=== PATIENT | female | born 1985 | race American Indian/Alaskan Native ===

== ENCOUNTER 2022-02-19 21:11 | Inpatient (IN) | payer MEDICAID ==
--- NOTE | 2022-02-20 07:50 | History and Physical Report ---
History of Present Illness Date of examination: 02/20/22 Chief complaint: Induction of labor secondary to growth restriction History of present illness: 36-year-old at 38-2/7 weeks gestation presents to labor and delivery for induction of labor secondary to growth restriction . No vaginal bleeding. No leaking of fluid. Good movement. The patient is followed by maternal- medicine. Estimated weight was below the 3rd percentile. They recommended induction of labor to decrease the risk of stillbirth. For this reason, the patient is admitted to labor and delivery. Past History [employer] History: herpes - Obstetrical History Expected Date of Delivery: 03/04/22 Actual Gestation: 38 Week(s) 2 Day(s) : 8 Para: 2 Hx # Term Pregnancies: 1 Number of Pregnancies: 1 Spontaneous Abortions: 5 Number of Living Children: 2 Medications and Allergies Allergies Allergy/AdvReac Type Severity Reaction Status Date / Time No Known Allergies Allergy Unverified 02/20/22 07:10 Review of Systems All systems: negative - Vital Signs Vital signs: Vital Signs Pulse Pulse Ox 98 H 99 02/19/22 22:29 02/19/22 22:29 Temp Pulse Resp BP Pulse Ox 88 104/59 98 02/20/22 07:44 02/20/22 07:44 02/20/22 07:14 - Physical Exam Breasts: Positive: normal Cardiovascular: Regular rate Lungs: Positive: Normal air movement Abdomen: Positive: normal appearance Genitourinary (Female): Positive: normal external genitalia, normal perenium Vulva: both: normal Vagina: Positive: normal moisture Uterus: Positive: enlarged Adnexa: both: normal Anus/Rectum: Positive: normal perianal skin Extremities: Positive: normal Deep Tendon Reflex Grade: Normal +2 - Obstetrical FHR: category 1 Uterine Contraction Monitor Mode: Palpation Cervical Dilatation: 2 Cervical Effacement Percentage: 70 station: -2 Uterine Contraction Pattern: Irregular Results All other labs normal. Assessment and Plan - Patient Problems (1) 38 weeks gestation of Current Visit: Yes Status: Acute Plan to address problem: care is up-to-date at [facility]. GBS status is unknown known at this time. Currently, there are no risk factors for intrapartum GBS prophylaxis per 2010 CDC MMWR guidelines. As such, no penicillin at this time. However, if this patient does develop risk factors for GBS, then prescribe IV penicillin at that time. (2) growth restriction Current Visit: Yes Status: Acute Plan to address problem: Etiology is unknown. The estimated weight is below the 3rd percentile per ultrasound done by maternal- medicine. They recommend induction of labor to decrease the risk of stillbirth. (3) Genital herpes affecting Current Visit: Yes Status: Acute Plan to address problem: The patient is on Valtrex for suppression. There are no active lesions. Continue Valtrex intrapartum. (4) LGSIL on Pap smear of cervix Current Visit: Yes Status: Acute (5) Encounter for induction of labor Current Visit: Yes Status: Acute Plan to address problem: Start Pitocin per protocol.
[2022-02-20] MEDS ORDERED: LACTATED RINGERS 1,000 ML IV SCH (08:00)
[2022-02-20] MEDS ORDERED: METHYLERGONOVINE MALEATE 0.2 MG/ML VIAL IM PRN (08:00)
[2022-02-20] MEDS ORDERED: OXYTOCIN DRIP 30 UNITS/500 ML BAG IV SCH ×2 (08:00→15:00)
[2022-02-20] MEDS ORDERED: ACETAMINOPHEN 325 MG TAB PO PRN (08:00)
[2022-02-20] MEDS ORDERED: miSOPROStol 25 MCG TAB PO SCH (08:00)
[2022-02-20] MEDS ORDERED: ePHEDrine SULFATE 50 MG/1 ML INJ IV PRN (08:30)
[2022-02-20] MEDS ORDERED: CARBOPROST TROMETHAMINE 250 MCG/1 ML INJ IM PRN (08:30)
[2022-02-20] MEDS ORDERED: fentaNYL 100 MCG/2 ML INJ IV PRN (08:30)
[2022-02-20] MEDS ORDERED: TERBUTALINE 1 MG/1 ML INJ SUB-Q PRN (08:30)
[2022-02-20] MEDS ORDERED: BUTORPHANOL 2 MG/1 ML INJ IV PRN (08:30)
[2022-02-20 08:34] LABS: Hematocrit 28.1 % (30.3-42.9); Hemoglobin 8.7 gm/dl (10.1-14.3); Mean Corpuscular HGB Conc 31 % (30-34); Mean Corpuscular Volume 75 fl (79-97); Platelet Count 374 K/mm3 (140-440); Red Blood Count 3.76 M/mm3 (3.65-5.03)
[2022-02-20] MEDS: valACYclovir 500 MG TAB PO SCH (10:00)
--- NOTE | 2022-02-20 11:44 | Ultrasound Report ---
US OB follow up, US OB velocimetry umbilcal art INDICATION: growth restriction. TECHNIQUE: Transabdominal ultrasound with color and spectral Doppler imaging COMPARISON: None available. FINDINGS: There is a single intrauterine . Biparietal Diameter = 8.7 cm Head Circumference = 31.6 cm Abdominal Circumference = 30.9 cm Femur Length = 6.7 cm Heart Rate: 139 beats per minute. Estimated Weight in grams (if calculated): 2521 Position: cephalic. Cervix: Not well seen. Placenta: posterior and free of the os. Amniotic Fluid Volume: normal Amniotic Fluid Index (LEONARDO) in cm (if calculated): 16. 3 segments of the umbilical cord were evaluated. The spectral wave forms are normal. S/D ratio measures: 2.34, 2.29, and 2.63 Resistive index measures: 0.57, 0.56 and 0.62. IMPRESSION: 1. Single, living intrauterine with estimated sonographic age of 35 weeks, 0 day(s). Clini mary age is 38 weeks and 2 days. 2. LEONARDO is normal. 3. Cord doppler waveforms appear normal. Signer Name: Raffi Rivera MD Signed: 02/20/2022 11:39 AM Workstation Name: [id number]
[2022-02-20] MEDS ORDERED: PENICILLIN G POTASSIUM 5 MIL.UNITS in SODIUM CHLORIDE 0.9% 50 ML IV ONE (18:33)
--- NOTE | 2022-02-20 18:33 | Event Note ---
Date: 02/20/22 pt evaluated and pelvic /-1 on pitocin at 4mu/min. AROM done with clear fluid. PCN ordered with no results for GBS. Expect
[2022-02-20] MEDS ORDERED: LIDOCAINE (2%) 20 MG/1 ML VIAL 20 ML MDV INFILTRATI ONE (20:05)
[2022-02-20] MEDS ORDERED: LIDOCAINE (1%) 10 MG/1 ML VIAL 20 ML MDV INFILTRATI ONE (20:18)
--- NOTE | 2022-02-20 22:21 | Procedure Note ---
OB Delivery Note - Delivery Date of Delivery: 02/20/22 Surgeon: REGINA SILVESTRE Estimated blood loss: 200cc - Vaginal Delivery presentation: vertex Delivery position: OA Delivery induction: oxytocin Delivery monitor: external FHT, external uterine Route of delivery: Delivery cord: other (lower right extremity cord) Delivery laceration: 2nd degree (perineal) Delivery repair: chromic Delivery comments: SAVD of viable female infant, uncomplicated and placenta delivered spontaneously and complete with 3vessel cord. Right lower leg noted to have umbilical cord wrapped around it without any damage done to leg. Pt sustained 2nd perineal laceration that was repaired with 2-0 chromic running locked suture and lidocaine 1% used for pain relief. Bimanual exam done and clots removed from lower uterine segment. Cervix visualized and no lacerations seen. Mom and baby stable. - A at 1 minute: 9 at 5 minutes: 9 Infant Gender: Female (wt 2645g; clear amniotic fluid)
[2022-02-21] MEDS ORDERED: oxyCODONE /ACETAMINOPHEN 5-325MG TAB PO PRN (00:22)
[2022-02-21] MEDS ORDERED: ACETAMINOPHEN 325 MG TAB PO PRN (00:22)
[2022-02-21] MEDS ORDERED: diphenhydrAMINE 25 MG CAP PO PRN (00:22)
[2022-02-21] MEDS ORDERED: ONDANSETRON 4 MG/2 ML INJ IV PRN (00:22)
[2022-02-21] MEDS ORDERED: PROMETHAZINE 25 MG RECT SUPP PR PRN (00:22)
[2022-02-21] MEDS ORDERED: PROMETHAZINE 25 MG TAB PO PRN (00:22)
[2022-02-21] MEDS ORDERED: MAGNESIUM HYDROXIDE (MOM) ORAL LIQD UDC PO PRN (00:22)
[2022-02-21] MEDS ORDERED: WITCH HAZEL/ GLYCERIN PAD TP PRN (00:22)
[2022-02-21] MEDS ORDERED: LANOLIN/ZINC/DIMETHICONE (LANSINOH) 7 GM TP PRN (00:22)
[2022-02-21] MEDS: IBUPROFEN 800 MG TAB PO SCH ×2 (06:13→18:22)
--- NOTE | 2022-02-21 09:43 | Progress Note ---
Assessment and Plan A: PP Day #1 Asymptomatic Anemia P: Follow Routine Orders FeSO4 325mg PO BID Subjective - Subjective Date of service: 02/21/22 Patient reports: appetite normal, voiding normally, pain well controlled, flatus, ambulating normally : doing well, bottle feeding (and ) Objective - Vital Signs Latest vital signs: Vital Signs Temp Pulse Resp BP Pulse Ox Pulse Ox 02/21/22 08:28 97.8 F 69 16 96/66 100 02/21/22 07:45 98 02/21/22 06:13 18 02/21/22 05:22 97.7 F 64 20 105/62 100 02/21/22 00:51 98 02/21/22 00:03 97.3 F L 79 18 102/55 99 02/20/22 22:44 88 100 02/20/22 22:39 84 98 02/20/22 22:38 97 H 100/57 02/20/22 22:34 77 99 02/20/22 22:29 81 99 02/20/22 22:24 86 99 02/20/22 22:23 81 95/54 02/20/22 22:19 80 99 02/20/22 22:14 92 H 99 02/20/22 22:09 80 98 02/20/22 22:08 75 98/53 02/20/22 22:04 84 99 02/20/22 21:59 86 99 02/20/22 21:54 75 99 02/20/22 21:53 73 100/57 02/20/22 21:49 79 100 02/20/22 21:44 73 99 02/20/22 21:39 89 99 02/20/22 21:38 75 105/57 02/20/22 21:34 77 99 02/20/22 21:29 84 100 02/20/22 21:24 73 100 02/20/22 21:23 70 111/64 02/20/22 21:19 83 100 02/20/22 21:14 84 100 02/20/22 21:09 81 100 02/20/22 21:08 82 108/64 02/20/22 21:04 88 100 02/20/22 20:59 71 100 02/20/22 20:54 69 100 02/20/22 20:53 71 111/65 02/20/22 20:49 74 99 02/20/22 20:44 79 99 02/20/22 20:40 77 108/57 02/20/22 20:39 77 99 02/20/22 20:34 77 99 02/20/22 20:29 84 100 02/20/22 20:24 71 122/69 100 02/20/22 20:19 76 100 02/20/22 20:14 72 100 02/20/22 20:09 85 129/60 100 02/20/22 20:04 78 100 02/20/22 19:59 84 100 02/20/22 19:54 85 100 02/20/22 19:49 72 97 02/20/22 19:44 90 100 02/20/22 19:39 82 100 02/20/22 19:34 86 100 02/20/22 19:29 91 H 100 02/20/22 19:24 86 100 02/20/22 19:19 83 100 02/20/22 19:06 98.3 F 18 100 99 02/20/22 18:28 78 130/76 02/20/22 18:09 93 H 99 02/20/22 18:04 92 H 99 02/20/22 17:59 85 100 02/20/22 17:54 86 100 02/20/22 17:49 90 99 02/20/22 17:44 89 100 02/20/22 17:39 97 H 99 02/20/22 17:34 82 100 02/20/22 17:29 81 99 02/20/22 17:24 93 H 99 02/20/22 17:19 84 99 02/20/22 17:14 80 99 02/20/22 17:09 83 99 02/20/22 17:04 90 99 02/20/22 17:02 99 F 16 02/20/22 16:59 96 H 98 02/20/22 16:54 88 98 02/20/22 16:49 83 99 02/20/22 16:44 83 99 02/20/22 16:39 79 100 02/20/22 16:34 84 99 02/20/22 16:29 82 99 02/20/22 16:24 88 99 02/20/22 16:19 84 100 02/20/22 16:14 78 100 02/20/22 16:09 91 H 100 02/20/22 16:04 86 100 02/20/22 15:59 85 100 02/20/22 15:54 81 100 02/20/22 15:49 82 100 02/20/22 15:44 93 H 100 02/20/22 15:39 82 100 02/20/22 15:34 81 100 02/20/22 15:29 81 100 02/20/22 15:24 85 100 02/20/22 15:19 83 100 02/20/22 15:14 91 H 100 02/20/22 15:09 95 H 100 02/20/22 15:04 89 100 02/20/22 14:59 95 H 115/60 100 02/20/22 14:46 99 H 99 02/20/22 14:41 97 H 100 02/20/22 14:36 100 H 100 02/20/22 14:31 99 H 100 02/20/22 14:26 105 H 100 02/20/22 14:21 110 H 99 02/20/22 14:16 107 H 100 02/20/22 14:11 100 H 100 02/20/22 14:06 92 H 99 02/20/22 14:01 91 H 99 02/20/22 13:56 94 H 100 02/20/22 13:51 93 H 100 02/20/22 13:46 97 H 100 02/20/22 13:41 95 H 100 02/20/22 13:36 99 H 100 02/20/22 13:31 95 H 99 02/20/22 13:26 99 H 100 02/20/22 13:21 110 H 100 02/20/22 13:16 100 H 99 02/20/22 13:14 98.1 F 16 02/20/22 13:11 103 H 100 02/20/22 13:06 101 H 100 02/20/22 13:01 106 H 100 02/20/22 12:56 104 H 99 02/20/22 12:51 102 H 99 02/20/22 12:46 108 H 100 02/20/22 12:41 105 H 100 02/20/22 12:36 109 H 100 02/20/22 12:32 94 H 101/59 02/20/22 12:31 95 H 100 02/20/22 12:26 105 H 100 02/20/22 12:21 94 H 100 02/20/22 12:16 95 H 100 02/20/22 12:11 102 H 100 02/20/22 12:06 89 100 02/20/22 12:01 96 H 100 02/20/22 11:56 85 100 02/20/22 11:51 88 99 02/20/22 11:46 86 100 02/20/22 11:41 92 H 99 02/20/22 11:36 97 H 100 02/20/22 11:31 96 H 100 02/20/22 11:26 92 H 100 02/20/22 11:21 86 100 02/20/22 11:16 90 100 02/20/22 11:11 85 99 02/20/22 11:06 86 100 02/20/22 11:01 89 100 02/20/22 10:56 84 100 02/20/22 10:51 85 100 02/20/22 10:46 94 H 100 02/20/22 10:42 92 H 117/62 02/20/22 10:41 97 H 100 02/20/22 10:15 94 H 100 02/20/22 10:10 99 H 100 02/20/22 10:05 83 100 02/20/22 10:00 90 100 02/20/22 09:55 93 H 100 02/20/22 09:50 99 H 100 02/20/22 09:45 92 H 100 Intake and Output 02/20/22 02/21/22 02/21/22 22:59 06:59 14:59 Intake Total 240 120 Output Total 500 950 Balance -260 -830 Intake: Oral 240 120 Output: Urine 500 950 Void 500 950 Other: Total, Intake Amount 240 120 Total, Output Amount 500 600 # Voids Void 1 Estimated Blood Loss 200 - Exam Breasts: Present: normal Cardiovascular: Present: Regular rate Lungs: Present: Clear to auscultation, Normal air movement Abdomen: Present: normal appearance, soft, normal bowel sounds Uterus: Present: normal, firm, fundal height below umbilicus Extremities: Present: normal - Labs Labs: Abnormal lab results 02/20/22 Range/Units 07:15 WBC 12.3 H (4.5-11.0) K/mm3 Hgb 8.7 L (10.1-14.3) gm/dl Hct 28.1 L (30.3-42.9) % MCV 75 L (79-97) fl MCH 23 L (28-32) pg RDW 16.0 H (13.2-15.2) %
[2022-02-21] MEDS: PRENATAL VIT27-FE FUMARATE-FOLIC ACID VIT TAB PO SCH (10:34)
[2022-02-21] MEDS: valACYclovir 500 MG TAB PO SCH (10:34)
[2022-02-21] MEDS: FERROUS SULFATE 325 MG TAB PO SCH ×2 (18:20→21:40)
[2022-02-21 21:34] LABS: Hematocrit 25.9 % (30.3-42.9); Hemoglobin 8.1 gm/dl (10.1-14.3); Mean Corpuscular HGB Conc 31 % (30-34); Mean Corpuscular Volume 75 fl (79-97); Platelet Count 336 K/mm3 (140-440); Red Blood Count 3.47 M/mm3 (3.65-5.03); Red Cell Distribution Width 16.4 % (13.2-15.2)
[2022-02-22] MEDS: IBUPROFEN 800 MG TAB PO SCH ×4 (00:01→18:30)
[2022-02-22] MEDS: PRENATAL VIT27-FE FUMARATE-FOLIC ACID VIT TAB PO SCH (10:24)
[2022-02-22] MEDS: valACYclovir 500 MG TAB PO SCH (10:24)
[2022-02-22] MEDS: FERROUS SULFATE 325 MG TAB PO SCH (10:24)
--- NOTE | 2022-02-22 15:05 | Progress Note ---
Assessment and Plan A: PPD # 2 -stable P: Discharge home today Discharge instructions given Subjective - Subjective Date of service: 02/22/22 Principal diagnosis: PPD # 2 -stable Patient reports: appetite normal [place]: doing well Objective - Vital Signs Latest vital signs: Vital Signs Temp Pulse Resp BP Pulse Ox Pulse Ox 02/22/22 09:54 100 02/22/22 08:48 98.2 F 77 17 102/61 100 02/22/22 05:41 18 02/22/22 00:50 98.2 F 80 20 102/62 99 02/22/22 00:01 18 02/21/22 20:10 98 02/21/22 16:51 98.3 F 84 20 110/74 97 Intake and Output 02/22/22 02/22/22 02/22/22 06:59 14:59 22:59 Intake Total 960 Balance 960 Intake: Oral 600 Intake, Free Water 360 Other: Total, Intake Amount 480 # Voids Void 1 2 - Exam Breasts: Present: deferred Cardiovascular: Present: Regular rate Lungs: Present: Clear to auscultation Abdomen: Present: normal appearance Vulva: both: normal Uterus: Present: fundal height below umbilicus Extremities: Present: normal Deep Tendon Reflex Grade: Normal +2 - Labs Labs: Abnormal lab results 02/21/22 Range/Units 21:01 WBC 14.6 H (4.5-11.0) K/mm3 RBC 3.47 L (3.65-5.03) M/mm3 Hgb 8.1 L (10.1-14.3) gm/dl Hct 25.9 L (30.3-42.9) % MCV 75 L (79-97) fl MCH 23 L (28-32) pg RDW 16.4 H (13.2-15.2) %
--- NOTE | 2022-02-22 15:07 | Discharge Summary ---
Providers - Providers Date of Admission: 02/20/22 07:50 Date of discharge: 02/22/22 Attending physician: FAB HERRON MD Primary care physician: FAB HERRON MD Hospitalization Reason for admission: active labor Delivery: Laceration: 2nd degree Other procedures: none complications: none Discharge diagnosis: IUP at term delivered [place] baby: female Condition at discharge: Good Disposition: 01 HOME / SELF CARE / HOMELESS Plan - Provider Discharge Summary Activity: routine, no sex for 6 weeks, no strenuous exercise Additional instructions: [] Smoking cessation referral if applicable(refer to patient education folder for contact #) [] Refer to [facility] Booklet Call your doctor immediately for: * Fever > 100.5 * Heavy vaginal bleeding ( >1 pad per hour) * Severe persistent headache * Shortness of breath * Reddened, hot, painful area to leg or breast * Drainage or odor from incision. * Keep incision clean and dry at all times and follow doctor's instructions regarding bathing/showering - Follow up plan Follow up: FAB HERRON MD [Primary Care Provider] - 6 Weeks
[2022-02-22 23:55] VITALS: BP 113/64
== END 2022-02-22 22:45 | disposition home or self-care (01) | DRG 774 ==
LOC: TRG 21:11 → LD 21:43 → TRG 02-20 07:50 → LD 02-20 07:50 → OB 02-21 00:19
PROVIDERS: ADMIT Obstetrics & Gynecology Gynecology; ATTEND Obstetrics & Gynecology Gynecology
PROC: 10E0XZZ Delivery of Products of Conception, External Approach (ICD-10-PCS; principal; 2022-02-20)
PROC: 0KQM0ZZ Repair Perineum Muscle, Open Approach (ICD-10-PCS; 2022-02-20)
PROC: 10907ZC Drainage of Amniotic Fluid, Therapeutic from Products of Conception, Via Natural or Artificial Opening (ICD-10-PCS; 2022-02-20)
PROC: 3E033VJ Introduction of Other Hormone into Peripheral Vein, Percutaneous Approach (ICD-10-PCS; 2022-02-20)
DX: O36.5930 Maternal care for other known or suspected poor fetal growth, third trimester, not applicable or unspecified (principal); O98.32 Other infections with a predominantly sexual mode of transmission complicating childbirth; Z3A.38 38 weeks gestation of pregnancy; Z20.822 Contact with and (suspected) exposure to COVID-19; A60.00 Herpesviral infection of urogenital system, unspecified; O70.1 Second degree perineal laceration during delivery; O90.81 Anemia of the puerperium
CPT/HCPCS: 36415; 76816; 76820; 85027; 86850; 86900; 86901; G0378; J2540; U0003